=== PATIENT | male | born 1995 | race Caucasian/White ===

== ENCOUNTER 2016-12-20 20:39 | Emergency (ER) | payer OTHER ==
[~2016-12-20] VITALS: Ht 200.7 cm; Wt 90.0 kg
[2016-12-20 20:46] VITALS: TEMP 36.9; Ht 200.7 cm; Wt 90.0 kg
--- NOTE | 2016-12-20 21:30 | DIAGNOSTIC IMAGING REPORT ---
IS A BONES 3 VIEWS HISTORY: elbowed in nose COMPARISON: None. FINDINGS: Nondisplaced fractures through the nasal bones. The nasal septum appears intact. Mild soft tissue swelling. No radiopaque foreign bodies. IMPRESSION: Nondisplaced nasal bone fractures. Electronically signed by: Sukhjinder Park M.D. 12/20/2016 9:28 PM Dictated Date/Time: 12/20/2016 9:28 PM
[2016-12-20 22:09] VITALS: BP 126/80; PULSE 89; O2SAT 100
--- NOTE | 2016-12-21 01:58 | EMERGENCY ROOM VISIT NOTE ---
ED Visit Note First contact with patient: 20:51 Chief Complaint: Nasal pain. History of Present Illness: Mr. Goyal is a 21-year-old white male who ambulates into the ED accompanied by 2 female friends complaining of nasal pain. Patient reports approximately one hour ago he was playing basketball and had his nose struck by another player's elbow. He reports there has been bleeding and swelling since the injury. Currently he describes his pain as a throbbing and pressure sensation predominantly over the nasal bones. He rates his discomfort 3/10. The pain is nonradiating. He hasn't taken any medications for pain prior to arrival at the hospital. His pain worsens with palpation. Has not identified any alleviating factors related to the pain. He denies any associated symptoms including loss of consciousness at the time of the head injury, since the injury headaches, dizziness, lightheadedness, neck pain, nausea, vomiting, difficulty breathing through his nose, chest pain, shortness of breath. Review of Systems: As noted above in history of present illness. 8 body systems were reviewed and found to be negative as noted above. Past Medical History: Patient denies. Current Medications: Patient denies. Allergies to Medications: Patient denies. Social History: Patient is currently a college student; he feels safe in his home environment; he denies tobacco use. Physical Examination: Vital Signs: Date Time Temp Pulse Resp B/P (MAP) Pulse Ox O2 Delivery O2 Flow Rate FiO2 12/20/16 22:09 89 20 126/80 100 12/20/16 20:46 36.9 121 18 124/75 98 Room Air GENERAL: 21-year-old male in mild distress due to pain, nontoxic-appearing, afebrile and hemodynamically stable. NEUROLOGICAL: Awake, alert and oriented to person, place and time. Answering questions appropriately and following commands. Normal gait. Good hand eye coordination. No focal motor or sensory deficits. Romberg test negative. Pronator drift test negative. Cranial nerves II through XII grossly intact. SKIN: Warm, dry and pink. Nose: 2-3 mm superficial laceration over the bridge of the nose. No active bleeding. HEENT: Skull: Atraumatic and normocephalic. No raccoon's eyes or farnsworth signs. No drainage from the ears or the nostril; no hemotympanum. Face: Soft tissue injury as noted above on nose under SKIN. Over the nose there is swelling and early ecchymosis just lateral to the patient superficial laceration. There is deviation of the nose to the right. The nostrils were patent. There was a small amount of blood noted in the left nostril but not the right. There was no active bleeding. There was tenderness and mild swelling over both nasal bones without bony crepitus or deformity. There was no tenderness or deformity over the orbits or the zygomatic bones. PERRLA. EOMI without nystagmus. Sclera white and conjunctiva pink. No malocclusion. No intraoral trauma. Airway patent. Speech normal. BACK: No tenderness over the bony cervical spine. Full range of motion of the cervical spine. THORAX: Lungs sounds are clear to auscultation and equal bilaterally with symmetrical chest wall. ABDOMEN: Flat, soft and nontender. Positive bowel sounds in all quadrants. No guarding, rigidity or organomegaly. EXTREMITIES: Moves all extremities well on command and with purpose. All distal neurovascular statuses are intact and equal bilaterally. ED Course: Patient is assessed as noted above. Patient's medication list was reviewed. Patient was offered medications and refused; he was given ice. Nasal Bones X-Rays: Were read by myself and the radiologist showing nondisplaced fractures through both nasal bones. Nasal septum appears intact. Mild soft tissue swelling. No foreign bodies. Patient was educated about today's findings and instructed on his treatment plan ; he verbalizes understanding and agreement with this plan. Clinical Impression: Nasal bone fractures. Disposition: Patient discharged home in stable condition accompanied by friends ; prior to departure he was reassessed and subjectively reported he was feeling slightly worse and rated his discomfort 4/10. Plan: Comfort measures, wound care, signs of infection and signs of head injury were discussed with the patient. Patient was encouraged to avoid alcohol use for the next 48 hours. Patient was encouraged to follow-up with an ENT specialist or plastic surgeon if after resolution he had difficulty breathing through his nose or any was concerned about the deformity of the nose. Patient was encouraged to return to the ED for recurrent nasal bleeding, uncontrolled pain, signs of head injury or any new/concerning symptoms.
== END 2016-12-20 22:00 | disposition home or self-care (01) ==
LOC: C.EDB 20:41 → EDBD 20:41 → C.EDD 22:00
DX: S02.2XXA Fracture of nasal bones, initial encounter for closed fracture (principal); W50.0XXA Accidental hit or strike by another person, initial encounter; Y93.67 Activity, basketball